=== PATIENT | male | born 1965 | race Caucasian/White ===

== ENCOUNTER 2019-05-19 15:03 | Emergency (ER) | payer OTHER ==
[~2019-05-19] VITALS: Ht 190.5 cm; Wt 122.5 kg
--- NOTE | ~2019-05-19 | EMS ---
[address] [address] EMS Patient Care Report Name: ELOY RENTERIA Room #: PRE M.R.#: [id number] Admission: Attend Phys: Discharge: Date of : 65 Report #: [id number] THIS REPORT FOR: //name// Report Transmitted: 05/19/2019 15:11 EMS Care Summary [facility] MED-ACT Incident [id number] @ 05/19/2019 14:10 Incident Location [address] [place] [address] Patient ELOY RENTERIA Male, 53 Years 1965 Patient Address [address] [address] Patient History Asthma,Cardiac Condition - Other, Patient Allergies No known allergies, Patient Medications Ventolin, Metoprolol, Chief Complaint DYSPNEA Disposition Transported [place] Reason Breathing Problem Transported To [facility] Narrative UPON ARRIVAL TO THE PATIENT, THE PATIENT APPEARED TO HAVE NO IMMEDIATE LIFE THREATS. THE PATIENT WAS NOTED TO BE CAOX4 WITH A GCS OF 15. THE PATIENT WAS SITTING UPRIGHT ON A CHAIR IN THE LIVING ROOM OF THE HOME. THE PATIENT WAS WITH HIS CO-WORKERS. [address] [address] EMS Patient Care Report Name: ELOY RENTERIA Room #: PRE ER M.R.#: [id number] Admission: Attend Phys: Discharge: Date of : 65 Report #: [id number] THE PATIENT APPEARED TO BE HAVING A PROBLEM WITH HIS BREATHING. THE PATIENT WAS NOTED TO HAVE A HISTORY OF ASTHMA. THE PATIENT WAS NOTED TO HAVE TAKEN TWO DOSES OF HIS RESCUE INHALER WITH MINIMAL RELIEF. UPON EVALUATING THE PATIENT, THE PATIENT WAS NOTED TO HAVE INSPIRATORY AND EXPIRATORY WHEEZING. THE PATIENT WAS PLACED ON ETCO2 MONITORING VIA A NASAL CANNULA / ETCO2 DEVICE. THE PATIENT AGREED TO HAVE A BREATHING TREATMENT FROM EMS PERSONNEL. THE PATIENT WAS STARTED ON A NEBULIZER TREATMENT OF ALBUTEROL AND ATROVENT VIA A NEBULIZER WITH OXYGEN AT EIGHT LPM. THE PATIENT'S VITALS WERE OBTAINED. THE PATIENT WAS PLACED ON THE DIGITAL STRATEGIST WITH 12 LEAD ACQUISITION. THIS REVEALED A SINUS RHYTHM WITH NO ACUTE CHANGES NOTED ON THE PATIENT'S 12 LEAD. THE PATIENT AGREED TO GO TO THE HOSPITAL FOR FURTHER EVALUATION AND CARE FROM A PHYSICIAN. THE PATIENT STATED THAT HE NORMALLY USES THE SERVICES OF [facility]. THE PATIENT WAS ASSISTED TO THE COT, SECURED, AND MOVED TO THE AMBULANCE. EN ROUTE TO THE ER, VITALS WERE MONITORED. THE PATIENT WAS GIVEN THE ENTIRE REGIMENT OF THE TREATMENT. THE PATIENTW RE-EVALUATED BY EMS. THIS REVEALED THAT THE PATIENT HAD ONLY MINIMAL EXPIRATORY WHEEZING. THE PATIENT STATED THAT HE WAS FEELING THAT HE COULD BREATH EASIER. THE PATIENT WAS TRANSPORTED WITH NO PROBLEMS AND NO OTHER COMPLAINTS. REPORT WAS CALLED TO THE ER VIA RADIO. THE PATIENT WAS LEFT IN ROOM ER NINE WITH REPORT GIVEN TO RN. Initial Vitals @14:20MI Suspected: false @14:15P: 98,R: 18,BP: 128/93,Pain: 0/10,GCS: 15,EtCO2: 23,SpO2: 99,Revised Trauma: 12, @14:36P: 89,R: 21,BP: 136/77,Pain: 0/10,GCS: 15,EtCO2: 28,SpO2: 100,Revised Trauma: 12,NV Suspected: false Assessments @14:20MENTAL:Person Oriented,Time Oriented,Event Oriented,Place Oriented,SKIN:HEENT:Eyes: Left Pupil: 3-mm,Eyes: Right Pupil: 3-mm,Head/Face: No Abnormalities,Neck/Airway: No Abnormalities,LUNG SOUNDS:General: No Abnormalities,ABDOMEN:General: No Abnormalities,PELVIS//GI:EXTREMITIES:Left Arm: No Abnormalities,Right Arm: No Abnormalities,Left Leg: No Abnormalities,Right Leg: No Abnormalities,PULSE:Radial: 2+ Normal,NEURO:No Abnormalities,@14:40MENTAL:Place Oriented,Person Oriented,Time Oriented,Event Oriented,SKIN:HEENT:LUNG SOUNDS:ABDOMEN:PELVIS//GI:EXTREMITIES:PULSE:NEURO: Impression Acute Respiratory Distress (Dyspnea) Procedures @14:2012-Lead ECGResponse: UnchangedSucceeded@14:3612-Lead ECGResponse: UnchangedSucceeded@14:17Albuterol - 2.5 Milligrams (mg) - NebulizedResponse: Improved@14:17Oxygen FlowRate: 8 Device: Nebulizer Response: [facility] [address] [place] [address] EMS Patient Care Report Name: DEXTERELOY CABRERA Room #: PRE M.R.#: [id number] Admission: Attend Phys: Discharge: Date of : 65 Report #: [id number] ImprovedSucceeded@14:17Ipratropium - 0.5 Milligrams (mg) - NebulizedResponse: Improved Timeline 14:09,Call Received 14:09,Psap Call 14:10,Dispatched 14:11,En Route 14:14,On Scene 14:15,At Patient 14:15,BP: 128/93 M,PULSE: 98,RR: 18 R,SPO2: 99 Ox,ETCO2: 23 ,BG: ,PAIN: 0,GCS: 15, 14:17,Albuterol - 2.5 Milligrams (mg) - Nebulized,Response: Improved 14:17,Oxygen FlowRate: 8 Device: Nebulizer Response: ImprovedSucceeded, 14:17,Ipratropium - 0.5 Milligrams (mg) - Nebulized,Response: Improved 14:20,12-Lead ECG,Response: UnchangedSucceeded, 14:20,BP: / M,PULSE: ,RR: R,SPO2: Ox,ETCO2: ,BG: ,PAIN: ,GCS: , 14:31,Depart Scene 14:36,12-Lead ECG,Response: UnchangedSucceeded, 14:36,BP: 136/77 M,PULSE: 89,RR: 21 R,SPO2: 100 Ox,ETCO2: 28 ,BG: ,PAIN: 0,GCS: 15, 14:43,At Destination 15:24,Call Closed Disclaimer v1.1 Copyright 2019 [employer] This EMS Care Summary contains data elements from the applicable legal record (which may be displayed differently). It is designed to provide pertinent information for the following purposes: continuity of care, clinical quality, and state data reporting. The complete legal record is available to ED staff and administrators of the receiving hospital in [employer] Patient Tracker. All data is provided "as is."
[~2019-05-19 15:03] MED LIST: ACIPHEX 20 MG T20 MG PO; ADIPEX-P37.5 M1 PO; ATIVAN1 MG PO; BUPAP 50 MG-301 EACH PO; CIALIS5 MG PO; COZAAR 25 MG TA25 M1 PO; CRANBERRY300 MG PO; EFFEXOR XR37.5 MG PO; FOLIC ACID 40400 MCG PO; HYDROCODONE-AP1 EAC6 PO; MELATONIN10 M2 PO; PEPCID20 MG PO; PEPCID40 MG PO; PROTANDIM PO; TESTOSTERO200 MG/11 IM; UNICOMPLEX M TA1 TA1 PO; VENTOLIN HFA 1818 GM INH; VITAMIN D350000 UNIT PO; ZANAFLEX4 MG PO
[2019-05-19 15:31] LABS: ABSOLUTE NEUTROPHILS 3.2 thou/uL (1.4-8.2); BASOPHILS 0.6 % (0.0-2.0); EOSINOPHILS 1.7 % (0.0-3.0); HEMOGLOBIN 15.3 gm/dL (14.0-18.0); LYMPHOCYTES 31.6 % (24.0-44.0); MCHC 34.7 g/dL (28.0-37.0); MCV 97.9 fL (80.0-100.0); MONOCYTES 9.5 % (1.0-8.0); PLATELET COUNT 198 thou/uL (150-400); POLYS 56.6 % (36.0-66.0); WBC 5.6 thou/uL (4.0-11.0)
[2019-05-19 15:39] LABS: ANION GAP 8 mmol/L (7-16); BUN 12 mg/dL (7-18); CALCIUM 8.9 mg/dL (8.5-10.1); CHLORIDE 101 mmol/L (98-107); CO2 27 mmol/L (21-32); CREATININE 1.3 mg/dL (0.7-1.3); GLUCOSE 114 mg/dL (74-106); POTASSIUM 3.5 mmol/L (3.5-5.1); SODIUM 136 mmol/L (136-145)
[2019-05-19 15:53] LABS: ALBUMIN 3.8 g/dL (3.4-5.0); SGOT 21 U/L (15-37); SGPT 44 U/L (30-65); TOTAL BILIRUBIN 0.4 mg/dL (<0.1-1.0); TROPONIN-I <0.06 ng/mL (<0.06)
[2019-05-19] MEDS ORDERED: PREDNISONE 20 M20 MG PO (16:23)
[2019-05-19 16:30] VITALS: BP 125/78
[2019-05-19] MEDS ORDERED: MEDROLDOSEPACK PO (17:23)
--- NOTE | 2019-05-21 13:50 | EKG ---
[place] [address] [facility] [place] [address] ELECTROCARDIOGRAM REPORT Name: ELOY RENTERIA [id number] Admission: 05/19/19 Attend Phys: Discharge: 05/19/19 Date of : 65 Report #: [id number] THIS REPORT FOR: //name// [facility] ED Test Date: 2019-05-19 Test Time: 15:46:13 Pat Name: ELOY RENTERIA Department: Room: Gender: M App[employer] Sewer: NATALEE : 1965 Requested By: Jose Sprague Order Number: [id number] MD: Braxton Joiner Measurements Intervals [place] Rate: 81 P: 6 AR: 161 QRS: -16 QRSD: 92 T: 134 QT: 333 QTc: 387 Interpretive Statements Sinus rhythm Left ventricular hypertrophy Nonspecific T abnormalities, lateral leads Compared to ECG 01/11/2015 14:18:05 T-wave abnormality now present Electronically Signed On 05-21-2019 13:49:59 CDT by Braxton Joiner [email or web address] <ELECTRONICALLY SIGNED> By: Braxton Joiner MD, [facility] 05/21/19 [id number] 1546 Braxton Joiner MD, [facility] /EPI
== END 2019-05-19 16:30 | disposition home or self-care (01) ==
LOC: ER 15:03
PROVIDERS: Physician Assistant
DX: J45.901 Unspecified asthma with (acute) exacerbation (principal); K21.9 Gastro-esophageal reflux disease without esophagitis; M79.7 Fibromyalgia; Z87.891 Personal history of nicotine dependence; Z91.040 Latex allergy status; Z88.0 Allergy status to penicillin; Z88.1 Allergy status to other antibiotic agents; Z91.013 Allergy to seafood; Z79.899 Other long term (current) drug therapy; Z98.890 Other specified postprocedural states

== ENCOUNTER → 2021-08-10 | Outpatient (CLI) | payer OTHER ==
[~2021-08-10] MED LIST changes: +MEDROLDOSEPACK PO; +PREDNISONE 20 M20 MG PO
== END | disposition home or self-care (01) ==
LOC: CAT 11:22
PROVIDERS: ATTEND Internal Medicine Cardiovascular Disease
DX: Z13.6 Encounter for screening for cardiovascular disorders (principal); E78.00 Pure hypercholesterolemia, unspecified; I25.10 Atherosclerotic heart disease of native coronary artery without angina pectoris

== ENCOUNTER → 2021-08-28 | Outpatient (CLI) | payer OTHER | LOC: SJCVCIMAG 07:31 | PROVIDERS: ATTEND Internal Medicine Cardiovascular Disease | DX: R00.0 Tachycardia, unspecified (principal); R07.9 Chest pain, unspecified; R06.00 Dyspnea, unspecified ==